=== PATIENT | female | born 1955 | race Caucasian/White ===

== ENCOUNTER → 2017-11-02 | Outpatient (CLI) | payer BC ==
[2017-11-02 10:33] VITALS: BP 118/83; PULSE 80; TEMP 98; BMI 43.7
--- NOTE | 2017-11-16 08:12 | P.HPBAR ---
Bariatric H&P - History & Physicial H&P Date: 11/02/17 History & Physicial: Visit/CC: lap band follow up Patient initial contact: Initial weight: Initial weight in pounds: Height: 5 ft 2 in Initial BMI: Last weight: Current weight: 108.409 kg Current weight in pounds: 239.00 Current BMI: 43.7 [place] body weight (based on NIH guidelines): 49.895 kg Excess body weight loss: The patient is a 62 year-old F who presents for Bariatric Assessment. Patient presents today for her LAP-BAND adjustment. She is requesting her fluid be taken out before coming surgery. Past Medical History Past Medical History: Cancer, Diabetes Mellitus, Hypertension, Osteoarthritis ( OA), Thyroid Disorder Additional Past Medical History / Comment(s): Breast cancer 2010 History of Any Multi-Drug Resistant Organisms: None Reported Past Surgical History: Bariatric Surgery, Hysterectomy Additional Past Surgical History / Comment(s): breast lumpectomy 2010 lap band 2009 Past Anesthesia/Blood Transfusion Reactions: No Reported Reaction Past Psychological History: No Psychological Hx Reported Smoking Status: Former smoker Past Alcohol Use History: None Reported Past Drug Use History: None Reported Surgical - Exam Vital Signs Temp Pulse BP 98.0 F 80 118/83 11/02/17 10:07 11/02/17 10:07 11/02/17 10:07 - General well developed - Eyes PERRL - ENT normal pinna - Neck no masses - Cardiovascular Rhythm: regular - Abdomen Abdomen: soft, non tender Bariatric Assessment & Plan Plan: Patient's lap band was emptied. She had 9 mL remove her band. She'll follow- up after her upcoming orthopedic surgery. Bariatric Checklist Checklist: Plan: Checklist: EGD: 1. Hiatal hernia: 2. H. Pylori: HgbA1c: Vitamin D: Smoking: Former smoker Primary care physician referral: Psychiatry clearance: Cardiology clearance: Sleep study: Diet journal: VTE risk score: VTE risk level: Rehab needs at discharge:
== END | disposition home or self-care (01) ==
LOC: BARWHC3 09:47
PROVIDERS: ATTEND Surgery
DX: Z48.815 Encounter for surgical aftercare following surgery on the digestive system (principal); Z87.891 Personal history of nicotine dependence; Z98.84 Bariatric surgery status
CPT/HCPCS: 99202